=== PATIENT | female | born 2000 ===

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

== ENCOUNTER 2024-01-23 15:04 | Outpatient (AMB) | payer OTHER, SELFPAY ==
--- NOTE | 2024-01-23 15:01 | A.OFFPC_ITS ---
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 She reports mervat t she was treated with topical ketoconazole shampoo in the past without relief. The area 1st started on her back and it has now spread to her legs, thighs and her stomach. Has been without the shampoo now for a few months as she ran out of refills. Does admit that while she has in the shower she feels sort of a tingle since things cessation however not itchy. Otherwise denies constitutional symptoms. [facility] Medical History No pertinent past medical history Surgical History No pertinent past surgical history Family History Father Lupus Maternal Grandmother Colon cancer Social History Household Members: Family Both parents involved: Yes Housing: House Cognitive needs: No Hearing needs: No Vision needs: No Physical exam (Primary Care) Tobacco/Smoking Status: Tobacco use Status Tobacco use date assessed 01/23/24 01/23/24 15:04 Telehealth Telehealth Telehealth Platform: Telephone Location of provider rendering services: practice address Location of patient: other Patient Identification confirmed using: Name, : Yes Telehealth method: voice only Patient verbally consented to treatment: Yes Patient verbally consented to billing insurance company: Yes Patient informed of any privacy concerns related to visit: Yes Minutes spent on Phone/Video with Pt.: 5 Assessment and Plan Assessment & Plan (1) Tinea versicolor: Code(s): B36.0 - Pityriasis versicolor Medications: New fluconazole one tablet once per week x 2 weeks 200 mg PO DAILY 2 tabs 0RF Patient Instructions: As she has tried and failed a topical I will treat her with fluconazole 200 mg once per week x2 week. I did advise her that if this does not clear after this that I need her to schedule an in-person visit so that I may re-evaluate. Coding Level of Care Code Tele Est Pt Level 1 (76244) Diagnoses Tinea versicolor B36.0
== END 2024-01-23 15:33 | disposition home or self-care (01) ==
LOC: HO.HMGFM 15:04
PROVIDERS: PCP Physician Assistant; Visit Provider Nurse Practitioner Family
DX: B36.0 Pityriasis versicolor (principal)
CPT/HCPCS: 99211